=== PATIENT | female | born 1950 ===

== ENCOUNTER → 2024-11-23 06:30 | Outpatient (REF) | payer MEDICARE, OTHER, SELFPAY ==
[2024-11-23 07:59] LABS: Urine Albumin Negative (Neg - Trace); Urine Bilirubin Negative (Negative); Urine Character Clear (Clear); Urine Color Yellow; Urine Glucose Negative (Negative); Urine Ketone Negative (Negative); Urine Leukocyte 2+ (Negative); Urine Nitrite Negative (Negative); Urine Occult Blood Negative (Negative); Urine Urobilinogen Negative (Neg - 1+)
[2024-11-23 08:02] LABS: % Basophils 0.6 % (0-2); % Eosinophils 2.2 % (0-6); % Immature Granulocytes 0.5 % (0-0.5); % Lymphocytes 36.2 % (20.5-51.1); % Monocytes 6.5 % (1.7-9.3); Absolute Eosinophils 0.1 10^3/uL (0-0.7); Absolute Lymphocytes 2.3 10^3/uL (1.2-3.4); Absolute Monocytes 0.4 10^3/uL (0.1-0.6); Absolute Neutrophils 3.4 10^3/uL (1.4-6.5); Hemoglobin 13.2 g/dL (12.0-16.0); Mean Corp Hgb Conc. 33.8 g/dL (33.0-37.0); Mean Corpuscular Hgb 29.1 pg (27.0-31.0); Mean Corpuscular Volume 86.1 fL (81.0-99.0); Mean Platelet Volume 9.4 fL (7.4-10.4); Nucleated Red Blood Cells % 0 %; Platelet Count 215 10^3/uL (130-400); Red Blood Cell Count 4.53 10^6/uL (4.20-5.40); Red Cell Dist. Width 12.9 % (11.5-14.5); White Blood Cell Count 6.3 10^3/uL (4.8-10.8)
[2024-11-23 08:33] LABS: ALT (SGPT) 25 U/L (0-35); AST (SGOT) 25 U/L (14-36); Albumin 4.6 g/dl (3.5-5.0); Alkaline Phosphatase 62 U/L (38-126); Blood Urea Nitrogen 16 mg/dl (7-17); Calcium 9.4 mg/dl (8.4-10.2); Carbon Dioxide 26 mmol/L (22-30); Chloride 98 mmol/L (98-107); Glucose 100 mg/dl (70-99); HDL Cholesterol 82 mg/dl; LDL Cholesterol, Calculated 145 mg/dl; Potassium 4.5 mmol/L (3.5-5.1); Sodium 130 mmol/L (135-145); Total Cholesterol 239 mg/dl (50-199); Total Protein 7.2 g/dl (6.3-8.2); Triglyceride 63 mg/dl (10-149); Very Low Density Lipoprotein 12 mg/dl (0-30); eGFR > 60.00
[2024-11-23 08:34] LABS: Urine Red Blood Cell 0-2 /HPF (0-2)
== END ==
LOC: REG 06:30
PROVIDERS: ATTENDING PHYSICIAN Internal Medicine
DX: Z13.1 Encounter for screening for diabetes mellitus (principal); Z13.220 Encounter for screening for lipoid disorders; Z13.0 Encounter for screening for diseases of the blood and blood-forming organs and certain disorders involving the immune mechanism
CPT/HCPCS: 36415; 80053; 80061; 81003; 81015; 85025

== ENCOUNTER → 2025-01-03 10:46 | Outpatient (REF) | payer MEDICARE, OTHER, SELFPAY ==
[2025-01-03 12:20] LABS: Albumin 4.7 g/dl (3.5-5.0); Blood Urea Nitrogen 24 mg/dl (7-17); Calcium 9.7 mg/dl (8.4-10.2); Carbon Dioxide 28 mmol/L (22-30); Chloride 100 mmol/L (98-107); Glucose 95 mg/dl (70-99); Potassium 5.1 mmol/L (3.5-5.1); Sodium 137 mmol/L (135-145); eGFR > 60.00
== END ==
LOC: REG 10:46
PROVIDERS: ATTENDING PHYSICIAN Internal Medicine
DX: E87.1 Hypo-osmolality and hyponatremia (principal)
CPT/HCPCS: 36415; 80051; 80069

== ENCOUNTER → 2025-01-14 08:40 | Outpatient (REF) | payer MEDICARE, OTHER, SELFPAY | LOC: RAD 08:40 | PROVIDERS: ATTENDING PHYSICIAN Internal Medicine Cardiovascular Disease; FAMILY PHYSICIAN Internal Medicine | DX: E78.5 Hyperlipidemia, unspecified (principal) | CPT/HCPCS: 75571 ==

== ENCOUNTER 2025-05-13 05:24 | Emergency (ER) | payer MEDICARE, OTHER, SELFPAY ==
[2025-05-13 05:26] VITALS: BP 119/80
--- NOTE | 2025-05-13 05:49 | ED.GENMED ---
History of Present Illness
General
Chief Complaint: Skin Problem
Source: patient
Exam Limitations: none
Time Seen by Provider: 05/13/25 05:39
Nursing documentation reviewed up to this point in time: agreed with
History of Present Illness
History of Present Illness:
Patient presents to ED secondary to rash noted behind her left thigh over the past 2 days. Patient denies removing insects or bug bites. Patient denies itching sensation or pain. However, 4 days ago, patient does report sensation of chills, which
now has resolved. Denies nausea or vomiting. Denies trauma. Denies recent travel. Denies previous history of similar symptoms.
Review of Systems
Review of Systems
Allergies reviewed?: Yes
All Other Systems: ROS reviewed and negative except as documented in HPI and ROS
Constitutional: Reports chills; Denies fever
Cardiac: Reports no symptoms
ABD/GI: Reports no symptoms; Denies nausea or vomiting
Musculoskeletal: Reports no symptoms
Skin: Reports rash; Denies itching
Neurological: Reports no symptoms
Phy Exam
Physical Exam
Physical Exam:
Physical Exam
General: no apparent distress, not acutely ill. afebrile
Head: nc/at. eomi
Neck: supple. normal range of motion
Abdomen: normal bowel sounds. not tender.
Neuro: alert and oriented x 3. no focal neurological deficits
Skin: an area of approx 3cm diameter, circular erythema, without central clearing. Nontender to palpation. No drainage. No warmth noted.
Psychiatric: well kept. interactive and cooperative
Extremities: no edema. no calf tenderness.
Sepsis
Sepsis Screening
Sepsis Assessment: Sepsis Ruled Out
Sepsis Screen
Sepsis Screen: Sepsis Ruled Out
Date: 05/13/25
Time: 22:30
Course
Orders/Labs/Results
Orders:
Orders
05/13/25 05:52
Amoxicillin [Amoxil] 500 mg PO NOW STA
05/13/25 06:06
Ehrlichia/Anaplasma by PCR [S] Urgent
Lyme Progressive Urgent
Babesia Smear [Blood Parasites] Urgent
ALESSIO Source: Blood/Venous
Specimen Description:
Vital Signs
Initial and Last Documented VS:
Initial Vital Signs
Temp Pulse Resp BP Pulse Ox
98.6 F 83 18 119/80 97
05/13/25 05:26 05/13/25 05:26 05/13/25 05:26 05/13/25 05:26 05/13/25 05:26
Last Documented Vital Signs
Temp Pulse Resp BP Pulse Ox
98.6 F 83 18 119/80 97
05/13/25 05:26 05/13/25 05:26 05/13/25 05:26 05/13/25 05:26 05/13/25 05:52
MDM/Problems Addressed
MDM/Problems Addressed:
History and exam consistent with nonspecific rash, inconsistent with common Lyme associated rash. However, in light of patient's chills sensation, along with endemic region along with patient's active outdoor lifestyle, difficult to exclude
potential tickborne illness. As such, patient will be started empirically on amoxicillin. Lyme titer along with other tickborne illness tests pending. Advised PCP follow-up for reevaluation next week. Patient otherwise is afebrile,
hemodynamically stable, and nontoxic-appearing, at time of discharge, to the care of her .
*Pulse Oximetry
SaO2: 97
Oxygen Mode of Delivery: Room air
Patient hypoxic: no
*Critical Care Note
Total Time (30-74mins, 75-104mins- exclusive of procedures): Not Applicable
ED Attending Note
-
Portions of this chart may have been created with voice recognition software.� Occasional wrong word or��sound alike� substitutions may have occurred due to the inherent limitations of voice recognition software.
Discharge Plan
Departure
Patient Disposition: Home (Routine Discharge)
Date of Disposition: 05/13/25
Time of Disposition: 05:59
Patient with high blood pressure during this ER visit?: No
Condition: Good
Discharge Problem:
Rash
Instructions: Skin Rash (DC)
Prescriptions:
New
amoxicillin 500 mg capsule
500 mg PO Q8H Qty: 41 0RF
No Action
Estrogen 1 MG Tab
1 mg PO QPM
polyethylene glycol 3350 17 GRAMS powder in packet
17 grams PO DAILYPRN PRN (Reason: constipation) Qty: 1 0RF
acetaminophen [Tylenol Extra Strength] 500 MG tablet
1,000 mg PO Q6HPRN PRN (Reason: mild pain) Qty: 1 0RF
ibuprofen 200 MG tablet
400 - 600 mg PO Q6HPRN PRN (Reason: moderate pain) Qty: 1 0RF
oxycodone 5 MG tablet
5 mg PO Q4HPRN PRN (Reason: breakthrough/severe pain) Qty: 5 0RF
Activity Restrictions/Additional Instructions:
As discussed, please follow-up with your primary care physician for reevaluation next week. Please consider return to ED with worsening symptoms, i.e. fever/vomiting/worsening rash. [facility] [place].
Interventions
Interventions:
*Risk Screen - Suicide Last Done: 05/13/25 05:26
*General Assessment Last Done: 05/13/25 05:26
*Neglect/Abuse Screening Last Done: 05/13/25 05:26
*ED- Fall Risk Assessment Last Done: 05/13/25 05:26
*ED COVID-19 Vaccine History Last Done: 05/13/25 05:26
*Nursing Disposition Last Done: 05/13/25 06:15
ED-Skin Assessment Last Done: 05/13/25 05:53
Discharge Date and Time
Discharge Date/Time: 05/13/25 06:15
Print Language: THAI
[2025-05-13] MEDS: AMOXIL 500 MG PO (06:14)
[2025-05-15 13:36] LABS: Lyme Antibody Screen, EIA Negative (Negative)
== END 2025-05-13 06:15 | disposition home or self-care (01) ==
LOC: EMR 05:24
PROVIDERS: EMERGENCY PHYSICIAN Emergency Medicine; FAMILY PHYSICIAN Internal Medicine
DX: R21 Rash and other nonspecific skin eruption (principal); R68.83 Chills (without fever)
CPT/HCPCS: 99283; 86618; 87015; 87207; 87468; 87484; 87798